=== PATIENT | male | born 1950 ===

== ENCOUNTER 2018-03-18 08:25 | Outpatient (CLI) | payer OTHER ==
[~2018-03-18] VITALS: Ht 162.6 cm; Wt 81.6 kg
== END 2018-03-18 08:45 | disposition home or self-care (01) ==
LOC: OFIC 805 08:25
DX: J34.3 Hypertrophy of nasal turbinates (principal); K21.9 Gastro-esophageal reflux disease without esophagitis; J30.89 Other allergic rhinitis

== ENCOUNTER 2018-05-13 07:51 | Outpatient (CLI) | payer OTHER ==
[~2018-05-13] VITALS: Ht 152.4 cm; Wt 81.6 kg
== END 2018-05-13 08:10 | disposition home or self-care (01) ==
LOC: OFIC 805 07:51
DX: K21.9 Gastro-esophageal reflux disease without esophagitis (principal); J34.3 Hypertrophy of nasal turbinates; R49.0 Dysphonia; J30.89 Other allergic rhinitis

== ENCOUNTER 2018-09-21 08:40 | Outpatient (CLI) | payer OTHER ==
[~2018-09-21] VITALS: Ht 152.4 cm; Wt 81.6 kg
== END 2018-09-21 09:00 | disposition home or self-care (01) ==
LOC: OFIC 805 08:40
DX: J30.89 Other allergic rhinitis (principal); J34.3 Hypertrophy of nasal turbinates; R09.81 Nasal congestion